=== PATIENT | female | born 1945 | race Caucasian/White ===

== ENCOUNTER → 2024-02-07 07:34 | Outpatient (REF) | payer MEDICARE, OTHER, SELFPAY | LOC: DHVS 07:34 | PROVIDERS: ATTENDING PHYSICIAN Surgery Vascular Surgery; FAMILY PHYSICIAN Family Medicine; REFERRING PHYSICIAN Internal Medicine Cardiovascular Disease | DX: S35.51 Injury of iliac artery or vein (principal) | CPT/HCPCS: 93922; 93978 ==

== ENCOUNTER → 2025-03-18 07:24 | Outpatient (REF) | payer MEDICARE, OTHER, SELFPAY | LOC: DHVS 07:24 | PROVIDERS: ATTENDING PHYSICIAN Surgery Vascular Surgery | DX: S35.51 Injury of iliac artery or vein (principal) | CPT/HCPCS: 93922; 93978 ==